=== PATIENT | male | born 1955 | race Caucasian/White ===

== ENCOUNTER 2024-02-05 16:08 | Emergency (ER) | payer MEDICARE, SELFPAY ==
[2024-02-05 16:22] VITALS: BP 132/87
[2024-02-05 16:41] LABS: % Basophils 0.8 % (0-2); % Eosinophils 1.4 % (0-6); % Immature Granulocytes 1.1 % (0-0.5); % Lymphocytes 19.9 % (20.5-51.1); % Monocytes 12.7 % (1.7-9.3); % Neutrophils 64.1 % (42.2-75.2); Absolute Basophils 0.1 10^3/uL (0-0.2); Absolute Eosinophils 0.1 10^3/uL (0-0.7); Absolute Immature Granulocytes 0.1 10^3/uL (0-0.05); Absolute Lymphocytes 1.3 10^3/uL (1.2-3.4); Absolute Monocytes 0.8 10^3/uL (0.1-0.6); Absolute Neutrophils 4.2 10^3/uL (1.4-6.5); Hematocrit 44.1 % (39.0-52.0); Hemoglobin 15.5 g/dL (13.0-18.0); Mean Corp Hgb Conc. 35.1 g/dL (33.0-37.0); Mean Corpuscular Volume 88.2 fL (80.0-94.0); Mean Platelet Volume 9.6 fL (7.4-10.4); Nucleated Red Blood Cells % 0 % (-); Platelet Count 161 10^3/uL (130-400); Red Cell Dist. Width 12.8 % (11.5-14.5); White Blood Cell Count 6.5 10^3/uL (4.8-10.8)
[2024-02-05 16:52] LABS: Erythrocyte Sed Rate 6 mm/hour (0-20)
[2024-02-05 16:55] LABS: ALT (SGPT) 26 U/L (0-50); AST (SGOT) 36 U/L (17-59); Albumin 4.5 g/dl (3.5-5.0); Alkaline Phosphatase 82 U/L (38-126); Blood Urea Nitrogen 21 mg/dl (9-20); Calcium 9.5 mg/dl (8.4-10.2); Carbon Dioxide 23 mmol/L (22-30); Chloride 106 mmol/L (98-107); Glucose 99 mg/dl (70-99); Potassium 4.4 mmol/L (3.5-5.1); Sodium 134 mmol/L (135-145); Total Bilirubin 0.8 mg/dl (0.2-1.3); Total Protein 7.7 g/dl (6.3-8.2); eGFR > 60.00
[2024-02-05 16:59] LABS: C-Reactive Protein < 5.00 mg/L (0.0-10.00)
[2024-02-05 19:51] VITALS: BMI 29.2
--- NOTE | 2024-02-05 21:47 | ED.GENMED ---
History of Present Illness
<Cydney Stephen DENTAL TECH - Last Filed: 02/07/24 10:29>
General
Chief Complaint: Visual Problem
Source: patient
Exam Limitations: none
Time Seen by Provider: 02/05/24 21:30
Nursing documentation reviewed up to this point in time: agreed with
Travel History
Have you had any contact with someone who has COVID-19?: No
Do you have any symptoms of coronavirus? Fever > 100 degrees, chills, cough, shortness of breath, sore throat, loss of taste or smell, muscle aches, or headache?: No
History of Present Illness
History of Present Illness:
68 yo male sent here from Ophthalmology Dr. Bush's office for double vision. Started 2 days ago while driving, with both eyes open saw double but not when one or the other eye is closed. It has been persistent, only at a distance of more than 5
feet; vision with closer objects is normal. Dr. Bush told him his eye exam is unremarkable.
Pt denies recent head injury, is not anticoagulated, denies headache. Feels well otherwise.
Denies dizziness, weakness, pain or confusion. He has had sinus pressure on the right side which he attributes to allergies and took Flonase and Mary earlier today
Past History
<Cydney Stephen, DENTAL TECH - Last Filed: 02/07/24 10:29>
Past History
ED Past Medical History: None
ED Past Surgical History: Orthopedic
Social History
Tobacco: Non-smoker
Alcohol: Occasional
Personal:
Living: with family
Employment: Employed
Review of Systems
<Cydney Stephen, DENTAL TECH - Last Filed: 02/07/24 10:29>
Review of Systems
Allergies reviewed?: Yes
All Other Systems: ROS reviewed and negative except as documented in HPI and ROS
Constitutional: Denies fever or fatigue
Respiratory: Denies trouble breathing
Cardiac: Denies chest pain
ABD/GI: Denies abdominal pain, nausea or vomiting
Musculoskeletal: Denies neck pain
Skin: Reports no symptoms
Neurological: Reports other (monocular diplopia); Denies dizzy, headache, weakness or numbness
Phy Exam
<Cydney Stephen, DENTAL TECH - Last Filed: 02/07/24 10:29>
Physical Exam
Physical Exam:
GENERAL: No acute distress. A&Ox3.
CONSTITUTIONAL: Afebrile.
EYES: PERRL, conjunctivae normal, EOMs intact, visual schaefer intact. Good red reflex bilaterally. Retinal vessels are sharp. Double vision with both eyes open at distance of about 5 feet, not within arms length. No monocular double vision.
Neck: Supple
ENMT: moist mucus membranes, Pharynx nl,TMs normal, nasal passages with mildly boggy turbinates, no sinus tenderness to percussion.
RESPIRATORY: Regular respirations, nonlabored, lungs clear.
CARDIOVASCULAR: Regular rate and rhythm, no murmurs, no rubs.
GI: Soft, nontender, normal BS
MUSCULOSKELETAL: Moves with ease. Well perfused.
SKIN: Warm, dry, pink
PSYCH: Normal mood and affect. Well kept, interactive and appropriate
NEUROLOGIC: Awake, alert and oriented. Speech clear. CN 2-12 intact. Ambulates well with steady gait. No focal neurological deficits
Course
<Cydney Stephen, DENTAL TECH - Last Filed: 02/07/24 10:29>
Orders/Labs/Results
Orders:
Orders
02/05/24 16:27
CT Head W/o Iv Contrast Urgent
Comment:
Reason For Exam: diploplia resolves when covering one eye.
02/05/24 16:34
C-Reactive Protein Urgent
Complete Blood Count/With Diff Urgent
Comprehensive Metabolic Panel Urgent
Erythrocyte Sed Rate Urgent
02/05/24 21:56
Visual Acuity- Treatment ONCE
Abnormal Lab Results
02/05/24
16:34
Abs Immat Gran (auto) 0.1 H 10^3/uL
(0-0.05)
Absolute Monos (auto) 0.8 H 10^3/uL
(0.1-0.6)
Immature Gran % 1.1 H %
(0-0.5)
Lymphocytes % 19.9 L %
(20.5-51.1)
Monocytes % 12.7 H %
(1.7-9.3)
Sodium 134 L mmol/L
(135-145)
BUN 21 H mg/dl
(9-20)
02/05/24 16:34
02/05/24 16:34
Vital Signs
Initial and Last Documented VS:
Initial Vital Signs
Temp Pulse Resp BP Pulse Ox
98.4 F 78 16 132/87 98
02/05/24 16:22 02/05/24 16:22 02/05/24 16:22 02/05/24 16:22 02/05/24 16:22
Last Documented Vital Signs
Temp Pulse Resp BP Pulse Ox
98.4 F 78 16 132/87 98
02/05/24 16:22 02/05/24 16:22 02/05/24 16:22 02/05/24 16:22 02/05/24 16:22
<Lang Fang MD - Last Filed: 02/05/24 22:18>
Orders/Labs/Results
Orders:
Orders
02/05/24 16:27
CT Head W/o Iv Contrast Urgent
Comment:
Reason For Exam: diploplia resolves when covering one eye.
02/05/24 16:34
C-Reactive Protein Urgent
Complete Blood Count/With Diff Urgent
Comprehensive Metabolic Panel Urgent
Erythrocyte Sed Rate Urgent
02/05/24 21:56
Visual Acuity- Treatment ONCE
Abnormal Lab Results
02/05/24
16:34
Abs Immat Gran (auto) 0.1 H 10^3/uL
(0-0.05)
Absolute Monos (auto) 0.8 H 10^3/uL
(0.1-0.6)
Immature Gran % 1.1 H %
(0-0.5)
Lymphocytes % 19.9 L %
(20.5-51.1)
Monocytes % 12.7 H %
(1.7-9.3)
Sodium 134 L mmol/L
(135-145)
BUN 21 H mg/dl
(9-20)
02/05/24 16:34
02/05/24 16:34
Vital Signs
Initial and Last Documented VS:
Initial Vital Signs
Temp Pulse Resp BP Pulse Ox
98.4 F 78 16 132/87 98
02/05/24 16:22 02/05/24 16:22 02/05/24 16:22 02/05/24 16:22 02/05/24 16:22
Last Documented Vital Signs
Temp Pulse Resp BP Pulse Ox
98.4 F 78 16 132/87 98
02/05/24 16:22 02/05/24 16:22 02/05/24 16:22 02/05/24 16:22 02/05/24 16:22
<Cydney Stephen, DENTAL TECH - Last Filed: 02/07/24 10:29>
MDM/Problems Addressed
Differential Diagnosis Includes:
CVA, TIA, sinusitis, misaligned eye movement
MDM/Problems Addressed:
68 yo male sent here from Ophthalmology Dr. Bush's office for double vision. Started 2 days ago while driving, with both eyes open saw double but not when one or the other eye is closed. It has been persistent, only at a distance of more than 5
feet; vision with closer objects is normal. Dr. Bush told him his eye exam is unremarkable.
Pt denies recent head injury, is not anticoagulated, denies headache. Feels well otherwise.
Denies dizziness, weakness, pain or confusion. He has had sinus pressure on the right side which he attributes to allergies and took Flonase and Mary earlier today's
Neuro exam unremarkable save for visual disturbance as noted
CBC normal
CMP normal
CRP normal
Head CT radiology report read: IMPRESSION:
1. There is no acute intracranial process.
2. No mass or mass effect.
3. Mild age-appropriate changes.
in to evaluate. Agrees no acute pathology.
Pt has f/u appt with Dr. Bush in next month
Reviewed return symptoms
Pt ambulated out with normal gait upon discharge
<Cydney Stephen DENTAL TECH - Last Filed: 02/07/24 10:29>
*Critical Care Note
Total Time (30-74mins, 75-104mins- exclusive of procedures): Not Applicable
ED Attending Note
<Cydney Stephen NP - Last Filed: 02/07/24 10:29>
-
Portions of this chart may have been created with voice recognition software.� Occasional wrong word or��sound alike� substitutions may have occurred due to the inherent limitations of voice recognition software.
<Lang Fang MD - Last Filed: 02/05/24 22:18>
ED Attending Note
Patient seen and examined by attending physician: Yes
ED Attending Note:
I have seen and evaluated the patient with a [id number] encounter. I have spoken to the advance practicer provider and involved in the medical history, the physical exam, medical decision making.
Evaluation and management service: agree unless noted differently below.
Results interpretation: agree unless noted differently below.
Focused HPI: 68-year-old male here with double vision. He says that it started Saturday when he woke up and has been constant since that time. Present in both eyes goes away when he closes either eye. He says it is only at a distance; goes away
when looking at things close up. He had an appointment today with Dr. Bush had a full exam was told that this was likely related to visual axis issue but told to come to the emergency room to get a CT head to rule out any mass or emergent
pathology.
Physical exam: Awake alert not in distress. Vital signs normal. Pupils are 4 mm and briskly reactive to light bilaterally. His extraocular movements are intact with no nerve palsy.
Medical Decision Making: Patient presents with binocular diplopia started on Saturday. Full ophthalmologic assessment today told likely visual axis issue but sent to the emergency room to have a CT head in an abundance of caution. He had lab work
and CT in triage reviewed and unremarkable. He has no signs of cranial nerve palsy on exam to suggest aneurysm or other emergent pathology requiring further imaging. He has already had full ocular exam in the office by an lens cutter and has
scheduled follow-up. Stable for discharge.
Discharge Plan
Departure
Patient Disposition: Home (Routine Discharge)
Date of Disposition: 02/05/24
Time of Disposition: 21:46
Patient with high blood pressure during this ER visit?: No
Condition: Good
Discharge Problem:
Double vision with both eyes open
Instructions: Double Vision (DC)
Referrals:
Scott Bush MD [Active] - Keep scheduled appt
UNKNOWN - PT DOES,NOT KNOW [Unknown Provider] -
Activity Restrictions/Additional Instructions:
As we discussed, your head CT is normal.
Your lab work is normal
Keep appointment with Dr. Bush next month.
Seek medical care immediately for worsening headache, worsening visual changes, weakness, balance problem or feeling worse in any way
No driving until your vision is back to normal
Interventions
Interventions:
*Risk Screen - Suicide Last Done: 02/05/24 19:51
*General Assessment Last Done: 02/05/24 19:51
*Neglect/Abuse Screening Last Done: 02/05/24 19:51
ED- Fall Risk Assessment Last Done: 02/05/24 19:52
*ED COVID-19 Vaccine History Last Done: 02/05/24 19:51
*Nursing Disposition Last Done: 02/05/24 22:33
ED- Neurological Assessment Last Done: 02/05/24 19:52
ED-EENT Assessment Last Done: 02/05/24 19:52
Discharge Date and Time
Discharge Date/Time: 02/05/24 22:34
Print Language: [place]AST [place]
== END 2024-02-05 22:34 | disposition home or self-care (01) ==
LOC: EMR 16:08
PROVIDERS: Emergency Medicine; EMERGENCY PHYSICIAN Emergency Medicine; FAMILY PHYSICIAN Internal Medicine
DX: H53.2 Diplopia (principal)
CPT/HCPCS: 99284; 70450; 80053; 85025; 85652; 86140